=== PATIENT | female | born 1985 | race Caucasian/White ===

== ENCOUNTER 2022-07-23 13:07 | Emergency (ER) | payer OTHER ==
[~2022-07-23] VITALS: Ht 177.8 cm; Wt 124.7 kg
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
[2022-07-23] MEDS ORDERED: ACETAMINOPHEN 325 MG TABLET PO ONE (13:45)
[2022-07-23 14:40] VITALS: BP 126/92
== END 2022-07-23 14:40 | disposition home or self-care (01) ==
LOC: ER 13:10
DX: S10.91XA Abrasion of unspecified part of neck, initial encounter (principal); V49.40XA Driver injured in collision with unspecified motor vehicles in traffic accident, initial encounter; Y92.410 Unspecified street and highway as the place of occurrence of the external cause
CPT/HCPCS: 99283